=== PATIENT | male | born 1970 | race Caucasian/White ===

== ENCOUNTER → 2017-03-22 10:50 | Outpatient (CLI) | payer OTHER, SELFPAY ==
[2017-03-22 12:25] LABS: Thyroid Stim Hormone (TSH) 1.66 uIU/mL (0.358-3.74)
== END ==
PROVIDERS: Family Provider Family Medicine; PCP Family Medicine; Visit Provider Family Medicine
DX: N52.9 Male erectile dysfunction, unspecified (principal)
CPT/HCPCS: 36415; 84403; 84443

== ENCOUNTER → 2017-09-20 08:21 | Outpatient (CLI) | payer OTHER, SELFPAY ==
[2017-09-20 10:27] LABS: Anion Gap 9 (5-15); BUN 15 mg/dL (7-18); BUN/Creat Ratio 20.1 RATIO (10-20); Calcium,Total 8.5 mg/dL (8.5-10.1); Chloride 105 mmol/L (98-107); Creatinine, Serum 0.75 mg/dL (0.70-1.30); EST Glomerular Filtration Rate 119 mL/min (>60); Est Glom Filt Rate - Afr Amer 144 mL/min (>60); Glucose 130 mg/dL (74-106); Potassium 4.1 mmol/L (3.5-5.1); Sodium Level 143 mmol/L (136-145)
== END ==
PROVIDERS: Family Provider Family Medicine; PCP Family Medicine; Visit Provider Family Medicine
DX: E10.9 Type 1 diabetes mellitus without complications (principal)
CPT/HCPCS: 36415; 80048

== ENCOUNTER → 2017-11-12 11:58 | Outpatient (CLI) | payer OTHER, SELFPAY ==
--- NOTE | 2017-11-12 12:03 | RAD_ITS ---
STUDY: X-RAY - LUMBAR SPINE REASON FOR EXAM: Male, 47 years old. Low back pain for 10 years. TECHNIQUE: 5 view(s) of the lumbar spine were obtained. COMPARISON: None FINDINGS: Normal lumbar lordosis. There is no substantial scoliosis. There is a normal alignment of the vertebrae. There is very slight multilevel endplate spondylosis of the lumbar vertebrae. There is very slight multi-level degenerative disc disease with multi-level disc space narrowing. There is no demonstrated fracture. The soft tissue structures are unremarkable. RAD/L/S Spine Min 4 Views IMPRESSION: No acute abnormalities. Very mild multilevel degenerative changes. Electronically Signed: Rl Peter MD at 11:57 EDT , Service support ,
== END ==
PROVIDERS: Family Provider Family Medicine; PCP Family Medicine; Visit Provider Family Medicine
DX: M54.5 Low back pain (principal)
CPT/HCPCS: 72110

== ENCOUNTER → 2017-12-10 17:41 | Outpatient (CLI) | payer OTHER, SELFPAY ==
--- NOTE | 2017-12-10 17:48 | MRI_ITS ---
STUDY: MRI LUMBAR SPINE WITH AND WITHOUT CONTRAST REASON FOR EXAM: Male, 47 years old. Low back and left leg pain TECHNIQUE: Standardized fat and water weighted pulse sequences were obtained in the sagittal and axial planes. 10 ml of Gadavist contrast material was administered for the contrast portion of the examination. # of Images: 187 COMPARISON: None FINDINGS: T12-L1: Incompletely imaged bulging annulus with mild central canal stenosis. Normal lumbar lordosis. There is no substantial scoliosis. Normal conus medullaris that terminates at the L1-2 level. L1-2: Bulging annulus with mild central canal stenosis. L2-3: Bulging annulus and bilateral facet hypertrophy with moderate central canal stenosis, severe left lateral recess stenosis, and moderate to severe left and moderate right foraminal stenoses. L3-4: Bilateral laminectomies. Bulging annulus and bilateral facet hypertrophy with moderate central canal stenosis, severe left lateral recess stenosis, and severe bilateral foraminal stenoses. L4-5: Disc osteophyte complex with moderate to severe bilateral foraminal stenoses. L5-S1: Bulging annulus and broad central disc protrusion with moderate bilateral foraminal stenoses. Normal visualized sacral ala. Normal visualized paraspinous soft tissue structures. MRI/Spine Lumbar W/WO Contrast IMPRESSION: Multilevel degenerative disease as described. Severe left lateral recess stenoses at L2-3 and L3-4. Severe bilateral foraminal stenoses at L3-4 and L4-5. Electronically Signed: Tyrone Reina MD at 3:00 EDT Tel , Service support ,
== END ==
PROVIDERS: Family Provider Family Medicine; PCP Family Medicine
DX: M54.16 Radiculopathy, lumbar region (principal)
CPT/HCPCS: 72158; A9585

== ENCOUNTER → 2018-02-01 09:30 | Outpatient (CLI) | payer OTHER, SELFPAY ==
[2018-02-01 08:36] VITALS: BMI 29.7
[2018-02-01 11:27] LABS: Microalbumin,Random Urine 6.1 mg/L (NO RANGE EST.)
[2018-02-01 11:34] LABS: Hemoglobin A1c 7.9 % (4.2-6.3)
[2018-02-01 11:50] LABS: ALB/GLOB Ratio 1.2 RATIO (0.9-2.4); AST(SGOT) 21 U/L (15-37); Alanine Aminotransfer ALT/SGPT 36 U/L (16-61); Albumin, Serum 3.9 g/dL (3.2-5.0); Alkaline Phosphatase 78 U/L (45-117); Anion Gap 8 (5-15); BUN 17 mg/dL (7-18); BUN/Creat Ratio 27.1 RATIO (10-20); Calcium,Total 8.6 mg/dL (8.5-10.1); Chloride 103 mmol/L (98-107); Cholesterol 167 mg/dL (200); Creatinine, Serum 0.63 mg/dL (0.70-1.30); EST Glomerular Filtration Rate 146 mL/min (>60); Est Glom Filt Rate - Afr Amer 176 mL/min (>60); Globulin 3.2 g/dL (2.2-4.2); Glucose 250 mg/dL (74-106); High Density Lipoprotein 44 mg/dL; Potassium 4.3 mmol/L (3.5-5.1); Protein, Total 7.1 g/dL (6.4-8.2); Sodium Level 136 mmol/L (136-145); Thyroid Stim Hormone (TSH) 0.96 uIU/mL (0.358-3.74); Triglycerides 89 mg/dL; Very Low Density Lipoprotein 18 mg/dL (5-40)
== END ==
PROVIDERS: Family Provider Family Medicine; PCP Family Medicine; Referring Provider Nurse Practitioner; Visit Provider Nurse Practitioner
DX: E10.9 Type 1 diabetes mellitus without complications (principal)
CPT/HCPCS: 36415; 80053; 80061; 82043; 83036; 84443

== ENCOUNTER 2018-02-09 16:30 | Outpatient (RCR) | payer OTHER, SELFPAY ==
--- NOTE | 2017-11-24 09:42 | HP.PTEVAL_ITS ---
Patient's Visit Information CHEN JONES is a 47 year old M referred to Physical Therapy by Jim Torres with a diagnosis of LBP. Date of Evaluation: 11/24/17 Physical Therapist: Tone Guerrier, PT, - Visit Plan Frequency: 2-3x /Week Duration: 4-6 Weeks Plan: Seek second opinion from Anderson Lugo or Armida Eldridge, both MDT PT's, on next visit to establish appropriate POC. - Subjective Subjective: Pt reports he has had LBP for about 2 weeks. Pt reports he has a chronic Hx of LBP and complications. Pt notes he has had surgery twice in the past, being a laminectomy and discectomy at various levels of his LB. Pt reports he has no difficulty with sitting for a period of time, but notes prolonged standing or walking increases his LBP. Pt reports he has noticed weakness in his L LE over this 2 week time span as well. Pt reports his pain is worse in the morning, and notes it is very hard for him to urinate secondary to his radiating pain that covers his ant quadriceps and groin region. pt has had xrays, which revealed nothing abnormal. Pt reports no particular cause for this pain. Pt reports his radiating pain never extends below his knee on L LE. Pt reports sleep difficulty without taking his pain meds. 4/10 at rest, 9/10 at worst (walking) - Pain LBP Pain Intensity (Out of 10): 4 Pain Intensity Range: 9 - Objective Neuro: B LE sensation is WNL to light touch. B patellar reflex= 2/3. MMT: B LE's 5/5 throughout. ROM: Pt is severely limited with extension and L SB. Pt is WNL with forward flex and R SB. All movements produce L LE radiculopathy. Repeated movements: supine DKTC 10x3 alleviated pain mildly. Prone prop on elbows with one pillow radiated sx's into L medial knee. - Goals Goal 1:: Decrease LBP x 50% to aid with sleep Goal Time Frame: 4-6 Weeks Goal 2:: Increase L/S ROM extension and L SB x 1 grade to aid with IADL's Goal Time Frame: 4-6 Weeks Goal 3:: Decrease the frequency and intensity of L LE radiculopathy x 1 grade to aid with tolerance for ambulation Goal Time Frame: 4-6 Weeks Goal 4:: I with HEP Goal Time Frame: 4-6 Weeks - Rehabilitation Potential Physical Therapy Diagnosis: Pt has LBP, limited ROM, and L LE radiculopathy secondary to L/S disc derrangement Rehabilitation Potential: Good - Anticipated Interventions Patient/Client Instruction: Educate patient on: Condition, Plan of Care For the Purpose of:: To improve self management Therapeutic Exercise to Include: Strength training, Endurance training, Body mechanics, Postural training, Dynamic Lumbar Stabilization, Jaylon Exercises For the Purpose of:: To decrease pain, To increase ROM, To improve muscle performance and motor function IF ES: Yes For the Purpose of:: To decrease pain Thank you for the opportunity to evaluate your patient. For Medicare and Medicare HMO plans, please review the plan of care and approve it. It will need to be FAXED BACK to us at [phone] for Medicare purposes. Please let me know if there are questions or concerns regarding this plan of care. Physician Signature: Date:
--- NOTE | 2018-05-25 09:22 | HP.PTDCSUM ---
HP - PT D/C Summary It has been my pleasure to treat CHEN JONES under orders from Jim Torres MD, for the diagnosis of LBP for a total of 17 visit(s). Discharge Date: Please see the following information for a summary of their discharge status. - Subjective Subjective: Patient stated been ex's at home ,talked to MD changed MEDS. Patient using inversion table - Pain Left Lower Extremity Pain Intensity (Out of 10): 1 LBP Pain Intensity (Out of 10): 1 - Overall Improvement % Improvement: 90 - Objective Objective/Function: POSTURE : WFL. GAIT: normal ayesha. PALAPTION: unremrkable. LUMBAR ROM: flexion WFL,extension min loss,side glides min loss. -SLR - Goals Goal 1:: Decrease LBP x 50% to aid with sleep Goal 2:: Increase L/S ROM extension and L SB x 1 grade to aid with IADL's Goal 3:: Decrease the frequency and intensity of L LE radiculopathy x 1 grade to aid with tolerance for ambulation Goal 4:: I with HEP - Plan Plan: RTD TO DR. CARSON SHIN ,PATIENT WILL DO EX'S AT HOME. AND RETURN NEED BASED ON SYMPTOMS AND MD - D/C Information If there are questions or concerns regarding this patient's physical therapy, please feel free to call me at [phone]. Thank you for the referral of this patient. Sincerely, Toñito Lugo, PT, Cert MDT, OCS
== END 2018-02-09 19:00 | disposition home or self-care (01) ==
LOC: PT 16:30
PROVIDERS: Family Provider Family Medicine; PCP Family Medicine; Referring Provider Family Medicine; Visit Provider Family Medicine
DX: M54.5 Low back pain (principal)
CPT/HCPCS: 97012; 97014; 97035; 97110; 97162; 97530; G0283

== ENCOUNTER → 2018-09-20 09:26 | Outpatient (CLI) | payer OTHER, SELFPAY ==
[2018-05-03 08:26] VITALS: BMI 29.7
[2018-09-20 12:24] LABS: ALB/GLOB Ratio 1.4 RATIO (0.9-2.4); AST(SGOT) 15 U/L (15-37); Alanine Aminotransfer ALT/SGPT 26 U/L (16-61); Albumin, Serum 3.8 g/dL (3.2-5.0); Alkaline Phosphatase 77 U/L (45-117); Anion Gap 7 (5-15); BUN 18 mg/dL (7-18); BUN/Creat Ratio 22.1 RATIO (10-20); Calcium,Total 8.8 mg/dL (8.5-10.1); Chloride 103 mmol/L (98-107); Creatinine, Serum 0.81 mg/dL (0.70-1.30); EST Glomerular Filtration Rate 108 mL/min (>60); Est Glom Filt Rate - Afr Amer 130 mL/min (>60); Globulin 2.8 g/dL (2.2-4.2); Glucose 218 mg/dL (74-106); Potassium 4.3 mmol/L (3.5-5.1); Protein, Total 6.6 g/dL (6.4-8.2); Sodium Level 140 mmol/L (136-145)
== END ==
PROVIDERS: Family Provider Family Medicine; PCP Family Medicine; Referring Provider Family Medicine; Visit Provider Family Medicine
DX: E10.9 Type 1 diabetes mellitus without complications (principal)
CPT/HCPCS: 36415; 80053

== ENCOUNTER → 2019-03-27 13:16 | Outpatient (CLI) | payer OTHER, SELFPAY ==
[2018-05-03 08:26] VITALS: BMI 29.7
== END ==
PROVIDERS: PCP Family Medicine; Referring Provider Family Medicine; Visit Provider Family Medicine
DX: E10.9 Type 1 diabetes mellitus without complications (principal)
CPT/HCPCS: 87077; 87086; 87088; 87186

== ENCOUNTER → 2019-03-28 06:21 | Outpatient (CLI) | payer OTHER, SELFPAY ==
[2018-05-03 08:26] VITALS: BMI 29.7
[2019-03-28 08:02] LABS: Microalbumin,Random Urine 5.8 mg/L (NO RANGE EST.); Microalbumin:Creatinine Ratio 4.3 mg/g CRE (<30 mg/g CRE)
[2019-03-28 08:15] LABS: ALB/GLOB Ratio 1.1 RATIO (0.9-2.4); AST(SGOT) 19 U/L (15-37); Alanine Aminotransfer ALT/SGPT 33 U/L (16-61); Albumin, Serum 3.6 g/dL (3.2-5.0); Alkaline Phosphatase 78 U/L (45-117); Anion Gap 6 (5-15); BUN 17 mg/dL (7-18); BUN/Creat Ratio 19.9 RATIO (10-20); Calcium,Total 8.3 mg/dL (8.5-10.1); Chloride 105 mmol/L (98-107); Cholesterol 160 mg/dL (200); Creatinine, Serum 0.85 mg/dL (0.70-1.30); EST Glomerular Filtration Rate 102 mL/min (>60); Est Glom Filt Rate - Afr Amer 123 mL/min (>60); Globulin 3.2 g/dL (2.2-4.2); Glucose 248 mg/dL (74-106); High Density Lipoprotein 41 mg/dL; Potassium 4.3 mmol/L (3.5-5.1); Protein, Total 6.8 g/dL (6.4-8.2); Sodium Level 138 mmol/L (136-145); Thyroid Stim Hormone (TSH) 1.52 uIU/mL (0.358-3.74); Triglycerides 91 mg/dL; Very Low Density Lipoprotein 18 mg/dL (5-40)
== END ==
PROVIDERS: PCP Family Medicine; Referring Provider Family Medicine
DX: E10.65 Type 1 diabetes mellitus with hyperglycemia (principal)
CPT/HCPCS: 36415; 80053; 80061; 82043; 82570; 84403; 84443

== ENCOUNTER → 2020-02-21 07:38 | Outpatient (CLI) | payer OTHER, SELFPAY ==
[2020-02-21 10:49] LABS: Vitamin B12 932 pg/mL (211-911)
[2020-02-21 10:56] LABS: ALB/GLOB Ratio 1.2 RATIO (0.9-2.4); AST(SGOT) 9 U/L (15-37); Alanine Aminotransfer ALT/SGPT 26 U/L (16-61); Albumin, Serum 3.7 g/dL (3.2-5.0); Alkaline Phosphatase 78 U/L (45-117); Anion Gap 6 (5-15); BUN 16 mg/dL (7-18); BUN/Creat Ratio 19.8 RATIO (10-20); Calcium,Total 8.5 mg/dL (8.5-10.1); Chloride 105 mmol/L (98-107); Cholesterol 127 mg/dL (200); Creatinine, Serum 0.81 mg/dL (0.70-1.30); EST Glomerular Filtration Rate 108 mL/min (>60); Est Glom Filt Rate - Afr Amer 131 mL/min (>60); Globulin 3.1 g/dL (2.2-4.2); Glucose 249 mg/dL (74-106); High Density Lipoprotein 42 mg/dL; Potassium 4.6 mmol/L (3.5-5.1); Protein, Total 6.8 g/dL (6.4-8.2); Sodium Level 137 mmol/L (136-145); Triglycerides 51 mg/dL; Very Low Density Lipoprotein 10 mg/dL (5-40)
== END ==
PROVIDERS: PCP Family Medicine; Referring Provider Family Medicine; Visit Provider Family Medicine
DX: E10.9 Type 1 diabetes mellitus without complications (principal)
CPT/HCPCS: 36415; 80053; 80061; 82607; 84443

== ENCOUNTER → 2020-08-19 18:09 | Outpatient (CLI) | payer OTHER, SELFPAY | PROVIDERS: Visit Provider Family Medicine | DX: Z20.828 Contact with and (suspected) exposure to other viral communicable diseases (principal) | CPT/HCPCS: 87635; U0005; U0003 ==

== ENCOUNTER → 2020-09-23 12:26 | Outpatient (CLI) | payer OTHER, SELFPAY ==
--- NOTE | 2020-09-23 12:30 | RAD_ITS ---
STUDY: X-RAY - RIGHT FOOT CLINICAL: Male, 50 years old. Right foot pain. TECHNIQUE: 3 view(s) of the foot. COMPARISON: None. FINDINGS: Mild osteopenia. Superior and inferior calcaneal spurs. Normal visualized subtalar, talonavicular, calcaneocuboid, tarsal and tarsometatarsal articulations. Normal metatarsi. Mild arthrosis of the MTP and IP joints. Calcification within the Achilles tendon. RAD/Foot min 3 Views IMPRESSION: Mild osteopenia with calcaneal spurs, mild arthrosis of the MTP and IP joints and soft tissue ossification within the distal Achilles tendon. No acute finding, periostitis or erosive changes. Electronically Signed: Walter Low MD at 13:13 EDT , Service support ,
== END ==
PROVIDERS: PCP Family Medicine; Referring Provider Family Medicine; Visit Provider Family Medicine
DX: M79.671 Pain in right foot (principal)
CPT/HCPCS: 73630

== ENCOUNTER → 2021-08-20 | Outpatient (CLI) | payer OTHER, SELFPAY ==
[2021-08-20 09:53] LABS: Hematocrit 46.5 % (40-54); Hemoglobin 15.9 g/dL (13.0-16.5); Mean Corp Hgb Conc 34.2 g/dL (32-36); Mean Corpuscular Hgb 29.9 pg (27.0-32.0); Mean Corpuscular Volume 87.6 fL (80-94); Mean Platelet Vol. 9.4 fl (6.2-12.0); Platelet Count 263 K/mm3 (150-450); RBC Distribution Width CV 12.7 % (11.6-14.6); RBC Distribution Width SD 40.3 fl (35.1-43.9); Red Blood Count 5.31 M/mm3 (4.6-6.2); White Blood Count 5.2 K/mm3 (4.4-11.0)
[2021-08-20 10:10] LABS: Hemoglobin A1c 7.4 % (3.8-5.6); Vitamin D,25 Hydroxy 38.5 ng/mL
[2021-08-20 10:15] LABS: ALB/GLOB Ratio 1.2 RATIO (0.9-2.4); AST(SGOT) 17 U/L (15-37); Alanine Aminotransfer ALT/SGPT 31 U/L (16-61); Albumin, Serum 3.8 g/dL (3.2-5.0); Alkaline Phosphatase 74 U/L (45-117); Anion Gap 4 (5-15); BUN 19 mg/dL (7-18); BUN/Creat Ratio 26.5 RATIO (10-20); Calcium,Total 8.9 mg/dL (8.5-10.1); Chloride 107 mmol/L (98-107); Cholesterol 150 mg/dL (200); Creatinine, Serum 0.72 mg/dL (0.70-1.30); EST Glomerular Filtration Rate 123 mL/min (>60); Est Glom Filt Rate - Afr Amer 149 mL/min (>60); Globulin 3.3 g/dL (2.2-4.2); Glucose 214 mg/dL (74-106); High Density Lipoprotein 52 mg/dL; PSA,Total - Annual Screen 0.95 ng/mL (0.00-4.00); Potassium 4.3 mmol/L (3.5-5.1); Protein, Total 7.1 g/dL (6.4-8.2); Sodium Level 139 mmol/L (136-145); Thyroid Stim Hormone (TSH) 1.18 uIU/mL (0.358-3.74); Triglycerides 79 mg/dL; Very Low Density Lipoprotein 16 mg/dL (5-40)
== END | disposition home or self-care (01) ==
PROVIDERS: PCP Family Medicine; Referring Provider Family Medicine; Visit Provider Family Medicine
DX: M06.9 Rheumatoid arthritis, unspecified (principal); E10.9 Type 1 diabetes mellitus without complications; Z12.5 Encounter for screening for malignant neoplasm of prostate
CPT/HCPCS: 36415; 80053; 80061; 82306; 83036; 84153; 84443; 85027; G0103

== ENCOUNTER 2022-05-08 05:36 | Emergency (ER) | payer OTHER, SELFPAY ==
[2022-05-08] MEDS: 0.9% Normal Saline 1,000 ML 1000 ML IV (05:36)
[2022-05-08 05:38] VITALS: BP 115/61; PULSE 89; RESP 15; TEMP 36.2; O2SAT 97; BMI 31.3
--- NOTE | 2022-05-08 05:52 | EX.ED.DYSGE1 ---
HPI History of Present Illness Chief Complaint: Hyperglycemia Detail of Chief Complaint: Elevated blood sugar and vomiting Informant: patient Narrative Narrative: Patient presents to the emergency department via EMS from home with complaint of vomiting that started around 1 AM. Patient also states that his blood sugars have been running in the high 300s. Patient has an insulin pump. He is a type I diabetic. Patient has been compliant with his insulin. He denies sick contacts. He has also had some diarrhea. He describes some mild abdominal discomfort. Denies chest pain or shortness of breath. [facility] Medical History Arthritis Back problem Hearing problem Hypoglycemia Seasonal allergies Type 1 diabetes mellitus Home Medications hydroxychloroquine 200 mg tablet 200 mg PO DAILY 05/21/13 [History Last Taken Unknown] aspirin 81 mg tablet,delayed release 81 mg PO DAILY 01/31/18 [History Last Taken Unknown] ezetimibe 10 mg tablet tablet PO 05/12/21 [History Last Taken Unknown] folic acid 1 mg tablet tablet PO 05/12/21 [History Last Taken Unknown] losartan 25 mg tablet 25 mg PO 05/12/21 [History Last Taken Unknown] meloxicam 15 mg tablet 15 mg PO 05/12/21 [History Last Taken Unknown] methotrexate sodium 2.5 mg tablet 2.5 mg PO 05/12/21 [History Last Taken Unknown] etanercept 50 mg/mL (1 mL) subcutaneous cartridge (Enbrel Mini) 50 mg subcut 11/03/21 [History Last Taken Unknown] insulin aspart U-100 100 unit/mL subcutaneous solution (Novolog U-100 Insulin aspart) 120 unit (1.2 mL) continuous subcutaneous infusion .continuous #110 mL 05/07/22 [Rx Last Taken Unknown] Allergy/AdvReac Type Severity Reaction Status Date / Time [id number] Reductase AdvReac cramping Verified 05/08/22 05:49 Inhibitor severe. [Kdnhalf-Plu-Xou Reductase Inhibitor] Family History Other Arthritis Bowel disease Breast cancer Cancer Diabetes Surgical History Hx of lumbosacral spine surgery Social History Smoking Status: Never smoker second hand exposure: No alcohol intake: never substance use type: does not use frequency: 1-2 times per week ROS ROS ED Review of Systems ROS Unobtainable: other Constitutional Constitutional ED: Reports lethargy; Denies chills, fever(s), sweats or weight loss Eyes Eyes: Denies blurry vision, change in vision or diplopia ENT ENT ED: Denies rhinorrhea or sore throat Cardiovascular Cardiovascular: Denies chest pain, orthopnea or racing heartbeat Respiratory/Chest Respiratory/Chest: Denies cough, dyspnea, dyspnea on exertion, orthopnea or sputum Gastrointestinal Gastrointestinal: Reports abdominal pain, diarrhea, nausea and vomiting Genitourinary Genitourinary ED: Denies dysuria, hematuria or urinary frequency Musculoskeletal Musculoskeletal: Denies arthralgias, back pain, myalgias or neck pain Integumentary Denies abscess, Abrasions or rash Neurologic Neurologic: Denies headache(s) or weakness Psychiatric Psychiatric: Denies anxiety, depression or suicidal thoughts Endocrine Endocrinology: Denies polydipsia, polyphagia or polyuria Hematologic/Lymphatic Hematologic/Lymphatic: Denies easy bleeding, easy bruising or lymphadenopathy Allergic/Immunologic Allergic/Immunologic ED: Denies mouth swelling, tongue swelling or urticaria EXAM Physical Exam Const Vital Signs: 05/08/22 05:38 05/08/22 06:03 Temperature 97.1 F L Temperature Source Temporal Pulse Rate 89 84 Respiratory Rate 15 17 Blood Pressure 115/61 132/61 H Blood Pressure Mean 79 84 Pulse Ox 97 97 Oxygen Delivery Method Room Air Room Air Positive well nourished and well developed General Appearance ED: well developed and NAD HEENT Reports TM's clear and moist mucous membranes normocephalic and atraumatic; Negative for trauma or tenderness Tympanic Membrane ED: Yes TM's clear Eyes PERRL and EOMs intact bilaterally General Eye ED: Negative for pale conjunctiva or scleral icterus Neck no lymphadenopathy, supple and no JVD General: Negative for tenderness Chest Wall inspection of chest normal and palpation of chest normal Chest: Negative for tenderness Resp normal respiratory effort and clear to auscultation bilaterally Effort and Inspection: Negative for respiratory distress or pain with movement Auscultation: Negative for rhonchi, wheezes or diminished lung sounds Cardio regular rate, regular rhythm, S1 normal heart sound, S2 normal heart sound and no murmurs Peripheral Pulses: pulses 2+ throughout GI normal to inspection, nondistended, normoactive bowel sounds, soft to palpation, non-tender, non-distended and no masses Back/Spine no CVA tenderness and no thoracic nor lumbar tenderness Extremity normal to inspection General Extremety ED: Negative for edema General Extremity: Negative for edema Neuro oriented x3, CN's II-XII intact bilaterally, no sensory deficits noted and gait normal Sensorium / Orientation: awake, alert, oriented to person, oriented to place and oriented to time Motor Exam: strength 5/5 throughout and strength abnormal Psych mental status grossly normal Skin no rashes or lesions noted and no wounds MDM MDM MDM Narrative Medical decision making narrative: Patient presented with an IV in place. He had received Zofran 8 mg IV. CBC with differential obtained showed a white count 16.5 with a hemoglobin of 16 and a hematocrit of 46. Platelets were 254. Chemistries unremarkable. His blood glucose was 380 however he had a normal anion gap. He had small acetone in the serum. He did continue to complain of abdominal discomfort therefore CT scan of the abdomen pelvis was ordered and results of which are currently pending. Patient was able to bolus himself with 14 units at 630 of insulin through his insulin pump. He will require repeat fingerstick blood glucose in an hour. Patient saw Matthew Cumming endocrinology yesterday and had question about whether or not his pump was working properly and he can follow back up with her today. Lab Data Attestation: I reviewed the patient's lab results. Labs: Laboratory Results - last 24 hr 05/08/22 05/08/22 05/08/22 05:56 05:56 05:56 WBC 16.5 H RBC 5.15 Hgb 15.7 Hct 46.0 MCV 89.3 MCH 30.5 MCHC 34.1 RDW Std Deviation 41.6 RDW Coeff of Juliane 12.7 Plt Count 254 MPV 9.4 Immature Gran % (Auto) 0.500 Neut % (Auto) 83.7 H Lymph % (Auto) 8.9 L [place] % (Auto) 6.2 Eos % (Auto) 0.2 Baso % (Auto) 0.5 Absolute Neuts (auto) 13.8 H Absolute Lymphs (auto) 1.47 Nucleated RBC % 0 Sodium 137 Potassium 4.5 Chloride 103 Carbon Dioxide 22.0 Anion Gap 12 BUN 34 H Creatinine 1.03 Estim Creat Clear Calc 90.37 Est GFR (MDRD) Af Amer 98 Est GFR (MDRD) Non-Af 81 BUN/Creatinine Ratio 33.0 H Glucose 380 H Calcium 9.1 Total Bilirubin 3.10 H AST 18 ALT 31 Alkaline Phosphatase 74 Total Protein 7.1 Albumin 4.1 Globulin 3.0 Albumin/Globulin Ratio 1.4 Acetone Level SMALL H Discharge Plan Triage Chief Complaint: Hyperglycemia ED Provider: Tameka Escamilla Dx/Rx/DC Orders Clinical Impression: Acute hyperglycemia, Gastroenteritis Prescriptions: No Action aspirin 81 mg tablet,delayed release (DR/EC) 81 mg PO DAILY meloxicam 15 mg tablet 15 mg PO ezetimibe 10 mg tablet PO methotrexate sodium 2.5 mg tablet 2.5 mg PO Label Comments: TAKE 6 TABLETS BY MOUTH ONCE A WEEK folic acid 1 mg tablet PO losartan 25 mg tablet 25 mg PO Enbrel Mini 50 mg/mL (1 mL) cartridge 50 mg subcut insulin aspart U-100 [Novolog U-100 Insulin aspart] 100 unit/mL solution 120 unit continuous subcutaneous infusion .continuous Qty: 110 1RF hydroxychloroquine 200 MG tablet 200 mg PO DAILY Primary Care Provider: Amanuel Barahona Referrals: Amanuel Barahona MD [Primary Care Provider] -
[2022-05-08 06:03] VITALS: BP 132/61; PULSE 84; RESP 17; O2SAT 97
[2022-05-08 06:04] LABS: Absolute Lymphocyte Count 1.47 X10^3/uL (0.83-4.51); Absolute Neutrophil Count 13.8 X10^3/uL (2.0-7.7); Basophil# 0.08 X10^3/uL; Basophil% 0.5 % (0-1); Eosinophil# 0.04 X10^3/uL; Eosinophils% 0.2 % (0-5); Hemoglobin 15.7 g/dL (13.0-16.5); Lymphocyte # 1.47 X10^3/ul (0.83-4.51); Lymphocyte % 8.9 % (19-41); Mean Corp Hgb Conc 34.1 g/dL (32-36); Mean Corpuscular Hgb 30.5 pg (27.0-32.0); Mean Corpuscular Volume 89.3 fL (80-94); Mean Platelet Vol. 9.4 fl (6.2-12.0); Monocyte# 1.02 X10^3/uL; Monocyte% 6.2 % (0-10); NRBC Flagged by Analyzer 0 % (0-5); Neutrophil # 13.84 X10^3/uL (2.7-7.7); Neutrophil % 83.7 % (47-70); Platelet Count 254 K/mm3 (150-450); RBC Distribution Width CV 12.7 % (11.6-14.6); RBC Distribution Width SD 41.6 fl (35.1-43.9); Red Blood Count 5.15 M/mm3 (4.6-6.2); White Blood Count 16.5 K/mm3 (4.4-11.0)
[2022-05-08 06:21] LABS: ALB/GLOB Ratio 1.4 RATIO (0.9-2.4); AST(SGOT) 18 U/L (15-37); Alanine Aminotransfer ALT/SGPT 31 U/L (16-61); Albumin, Serum 4.1 g/dL (3.2-5.0); Alkaline Phosphatase 74 U/L (45-117); Anion Gap 12 (5-15); BUN 34 mg/dL (7-18); Calcium,Total 9.1 mg/dL (8.5-10.1); Chloride 103 mmol/L (98-107); Creatinine, Serum 1.03 mg/dL (0.70-1.30); EST Glomerular Filtration Rate 81 mL/min (>60); Est Glom Filt Rate - Afr Amer 98 mL/min (>60); Estimated Creatinine Clearance 90.37 ml/min; Glucose 380 mg/dL (74-106); Potassium 4.5 mmol/L (3.5-5.1); Protein, Total 7.1 g/dL (6.4-8.2); Sodium Level 137 mmol/L (136-145)
[2022-05-08] MEDS: 0.9% Normal Saline 1,000 ML 150 ML IV (06:25)
--- NOTE | 2022-05-08 07:00 | CT_ITS ---
INDICATION: abdominal pain EXAMINATION: CT ABDOMEN AND PELVIS WITHOUT CONTRAST - CT Abdomen And Pelvis W/O Contrast Injection TECHNIQUE: Helically acquired images were obtained of the abdomen and pelvis without oral or IV contrast. A radiation dose optimization technique was used for this scan. IV Contrast dosage and agent: None. Oral contrast: None. COMPARISON: None. FINDINGS: LOWER CHEST: Included lung bases are clear. LIVER: Grossly unremarkable. GALLBLADDER AND BILIARY TREE: Grossly unremarkable. PANCREAS: Grossly unremarkable. SPLEEN: Grossly unremarkable. ADRENAL GLANDS: Grossly unremarkable. KIDNEYS AND URETERS: No calculi demonstrated. No hydronephrosis. PERITONEUM: No free air. No free fluid. BOWEL: Suggestion of wall thickening from the mid ascending colon/hepatic flexure through transverse colon, possibly exaggerated by suboptimal distention. No bowel obstruction. APPENDIX: Not identified. VESSELS: Abdominal aorta is normal caliber. REPRODUCTIVE ORGANS: Grossly unremarkable URINARY BLADDER: Grossly unremarkable. ABDOMINAL WALL: Unremarkable. BONES: Degenerative changes in lumbar spine. CT/Abdomen/Pelvis without Cont IMPRESSION: Suggestion of colonic wall thickening ascending through transverse colon early acute colitis versus nondistention. No other acute findings. Electronically Signed: Corry Briseno MD at 7:39 EDT ,
[2022-05-08] MEDS: Metoclopramide 10 MG/2 ML Vial 5 MG IV (07:08)
[2022-05-08] MEDS: 0.9% Normal Saline 1,000 ML 999 ML IV (07:18)
--- NOTE | 2022-05-08 08:09 | EDS_ITS ---
HPI History of Present Illness Chief Complaint: Hyperglycemia [facility] Medical History Arthritis Back problem Hearing problem Hypoglycemia Seasonal allergies Type 1 diabetes mellitus Home Medications hydroxychloroquine 200 mg tablet 200 mg PO DAILY 05/21/13 [History Last Taken Unknown] aspirin 81 mg tablet,delayed release 81 mg PO DAILY 01/31/18 [History Last Taken Unknown] ezetimibe 10 mg tablet tablet PO 05/12/21 [History Last Taken Unknown] folic acid 1 mg tablet tablet PO 05/12/21 [History Last Taken Unknown] losartan 25 mg tablet 25 mg PO 05/12/21 [History Last Taken Unknown] meloxicam 15 mg tablet 15 mg PO 05/12/21 [History Last Taken Unknown] methotrexate sodium 2.5 mg tablet 2.5 mg PO 05/12/21 [History Last Taken Unknown] etanercept 50 mg/mL (1 mL) subcutaneous cartridge (Enbrel Mini) 50 mg subcut 11/03/21 [History Last Taken Unknown] insulin aspart U-100 100 unit/mL subcutaneous solution (Novolog U-100 Insulin aspart) 120 unit (1.2 mL) continuous subcutaneous infusion .continuous #110 mL 05/07/22 [Rx Last Taken Unknown] cephalexin 500 mg capsule 500 mg PO Q6 #40 CAPSULES 05/08/22 [Rx Last Taken Unknown] metronidazole 500 mg tablet 500 mg PO Q6H #40 tabs 05/08/22 [Rx Last Taken Unknown] Allergy/AdvReac Type Severity Reaction Status Date / Time [id number] Reductase AdvReac cramping Verified 05/08/22 05:49 Inhibitor severe. [Fnnshcq-Zxu-Bcs Reductase Inhibitor] Family History Other Arthritis Bowel disease Breast cancer Cancer Diabetes Surgical History Hx of lumbosacral spine surgery Social History Smoking Status: Never smoker second hand exposure: No alcohol intake: never substance use type: does not use frequency: 1-2 times per week EXAM Physical Exam Const Vital Signs: 05/08/22 05:38 05/08/22 06:03 Temperature 97.1 F L Temperature Source Temporal Pulse Rate 89 84 Respiratory Rate 15 17 Blood Pressure 115/61 132/61 H Blood Pressure Mean 79 84 Pulse Ox 97 97 Oxygen Delivery Method Room Air Room Air [facility] Lab Data Lab results narrative: CBC was reviewed and shows a leukocytosis of 16.5. The remainder was within normal limits. Comprehensive metabolic profile was reviewed. Glucose was 380. Anion gap was normal. Electrolytes were normal. Total bilirubin was mildly elevated at 3.1. AST, ALT, and alkaline phosphatase are normal. Serum acetone was reviewed and was small. Labs: Laboratory Results - last 24 hr 05/08/22 05/08/22 05/08/22 05:56 05:56 05:56 WBC 16.5 H RBC 5.15 Hgb 15.7 Hct 46.0 MCV 89.3 MCH 30.5 MCHC 34.1 RDW Std Deviation 41.6 RDW Coeff of Juliane 12.7 Plt Count 254 MPV 9.4 Immature Gran % (Auto) 0.500 Neut % (Auto) 83.7 H Lymph % (Auto) 8.9 L [place] % (Auto) 6.2 Eos % (Auto) 0.2 Baso % (Auto) 0.5 Absolute Neuts (auto) 13.8 H Absolute Lymphs (auto) 1.47 Nucleated RBC % 0 Sodium 137 Potassium 4.5 Chloride 103 Carbon Dioxide 22.0 Anion Gap 12 BUN 34 H Creatinine 1.03 Estim Creat Clear Calc 90.37 Est GFR (MDRD) Af Amer 98 Est GFR (MDRD) Non-Af 81 BUN/Creatinine Ratio 33.0 H Glucose 380 H Calcium 9.1 Total Bilirubin 3.10 H AST 18 ALT 31 Alkaline Phosphatase 74 Total Protein 7.1 Albumin 4.1 Globulin 3.0 Albumin/Globulin Ratio 1.4 Acetone Level SMALL H Radiography Diagnostic Testing: Clinical Impression(s) from Imaging Studies Abdomen/Pelvis CT 05/08/22 07:00 IMPRESSION: Suggestion of colonic wall thickening ascending through transverse colon early acute colitis versus nondistention. No other acute findings. Electronically Signed: Corry Briseno MD at 7:39 EDT , CT scan of the abdomen and pelvis was reviewed. There is colonic wall thickening of the ascending and transverse colon suspicious for acute colitis. This was interpreted by the radiologist and was also independently reviewed by myself. Treatment and Re-Evaluation :: Care of the patient was turned over to me pending CT scan results. CT scan of the abdomen pelvis showed thickening of the ascending and transverse colon consistent with colitis. There is no free air or free fluid. There is no other acute abnormality noted. Patient was advised of his findings. Patient was given a dose of Keflex and a dose of Flagyl here. Patient was given prescriptions for the same. Patient was instructed to start with a bland diet and advance his diet as tolerated. Patient was instructed to follow-up with his primary care physician in 3 to 5 days for reevaluation. Patient was also instructed to follow-up with his rn acls. Patient and spouse understood and were agreeable with the plan. All questions were answered. Discharge Plan Triage Chief Complaint: Hyperglycemia ED Provider: Tameka Escamilla Dx/Rx/DC Orders Clinical Impression: Acute hyperglycemia, Gastroenteritis, Colitis Instructions: ED Understanding Colitis, ED Diabetic Hyperglycemia Prescriptions: New metronidazole [metronidazole] 500 mg tablet 500 mg PO Q6H Qty: 40 0RF cephalexin [cephalexin] 500 mg capsule 500 mg PO Q6 Qty: 40 0RF No Action aspirin 81 mg tablet,delayed release (DR/EC) 81 mg PO DAILY meloxicam 15 mg tablet 15 mg PO ezetimibe 10 mg tablet PO methotrexate sodium 2.5 mg tablet 2.5 mg PO Label Comments: TAKE 6 TABLETS BY MOUTH ONCE A WEEK folic acid 1 mg tablet PO losartan 25 mg tablet 25 mg PO Enbrel Mini 50 mg/mL (1 mL) cartridge 50 mg subcut insulin aspart U-100 [Novolog U-100 Insulin aspart] 100 unit/mL solution 120 unit continuous subcutaneous infusion .continuous Qty: 110 1RF hydroxychloroquine 200 MG tablet 200 mg PO DAILY Primary Care Provider: Amanuel Barahona Referrals: Amanuel Barahona MD [Primary Care Provider] - 3-5 Days Aamir Bland MD [Med Staff - [facility] Staff] - 3-5 Days Disposition Disposition: Home, Self Care
[2022-05-08] MEDS: Cephalexin 500 MG Capsule PO (08:35)
[2022-05-08] MEDS: metroNIDAZOLE 500 MG Tablet PO (08:35)
[2022-05-08 08:38] VITALS: BP 138/72; PULSE 88; RESP 16; O2SAT 97
[2022-05-08] MEDS: Ondansetron ODT 4 MG Tablet PO (08:51)
== END 2022-05-08 08:40 | disposition home or self-care (01) ==
PROVIDERS: Emergency Provider Emergency Medicine; PCP Family Medicine; Visit Provider Emergency Medicine
DX: E10.65 Type 1 diabetes mellitus with hyperglycemia (principal); K52.9 Noninfective gastroenteritis and colitis, unspecified; Z96.41 Presence of insulin pump (external) (internal)
CPT/HCPCS: 74176; 80053; 82009; 85025; 96361; 96374; 99285

== ENCOUNTER → 2022-05-11 | Outpatient (CLI) | payer OTHER, SELFPAY ==
[2022-05-11 10:25] LABS: ALB/GLOB Ratio 1.2 RATIO (0.9-2.4); AST(SGOT) 28 U/L (15-37); Alanine Aminotransfer ALT/SGPT 35 U/L (16-61); Albumin, Serum 3.5 g/dL (3.2-5.0); Alkaline Phosphatase 65 U/L (45-117); Anion Gap 7 (5-15); BUN 11 mg/dL (7-18); BUN/Creat Ratio 14.9 RATIO (10-20); Calcium,Total 8.6 mg/dL (8.5-10.1); Chloride 107 mmol/L (98-107); Cholesterol 113 mg/dL (200); Creatinine, Serum 0.74 mg/dL (0.70-1.30); EST Glomerular Filtration Rate 119 mL/min (>60); Est Glom Filt Rate - Afr Amer 144 mL/min (>60); Glucose 123 mg/dL (74-106); High Density Lipoprotein 51 mg/dL; Potassium 3.8 mmol/L (3.5-5.1); Protein, Total 6.5 g/dL (6.4-8.2); Sodium Level 140 mmol/L (136-145); Thyroid Stim Hormone (TSH) 1.42 uIU/mL (0.358-3.74); Triglycerides 59 mg/dL; Very Low Density Lipoprotein 12 mg/dL (5-40)
[2022-05-11 10:44] LABS: Microalbumin,Random Urine 13.1 mg/L (NO RANGE EST.); Microalbumin:Creatinine Ratio 10.9 mg/g CRE (<30 mg/g CRE)
== END | disposition home or self-care (01) ==
PROVIDERS: PCP Family Medicine; Referring Provider Nurse Practitioner Family; Visit Provider Nurse Practitioner Family
DX: E10.9 Type 1 diabetes mellitus without complications (principal)
CPT/HCPCS: 36415; 80053; 80061; 82043; 82570; 84403; 84443

== ENCOUNTER 2022-06-16 06:46 | Day surgery (SDC) | payer OTHER, SELFPAY ==
[2022-06-16] VITALS (7 sets, daily range): BP systolic 97–116; BP diastolic 63–74; PULSE 63–75; RESP 16–17; TEMP 36.3–36.7; O2SAT 94–97; BMI 31.6
[2022-06-16] MEDS: Lactated Ringers 1,000 ML 15 ML IV (07:11)
--- NOTE | 2022-06-16 07:15 | HP.PCM_ITS ---
History and Physical Date of Admission: 06/16/22 Intake Vital Signs ? 05/08/2304:38 05/19/2307:19 Height 5 ft 11 in 5 ft 11 in Weight: 224 lb 6.889 oz 223 lb 4 oz BMI 31.3 31.1 BP 115/61 108/70 Blood Pressure Location ? Rt brachial Position ? Sitting Respiration 15 17 Pulse 89 75 Pulse Source ? Monitor Temp 97.1 F L 97.4 F L Temp Source Temporal ? Pulse Oximetry (%) 97 97 Oxygen Delivery Method ? room air Intake Visit Reasons:?ED FOR ACUTE COLITIS Chief Complaint: ED for acute colitis/colonoscopy Is patient in pain?: No Allergies Cfjinbc-VZE-XyO Reductase Inhibitor [Ypqldyl-Ifc-Fwc Reductase Inhibitor] Adverse Reaction (Verified 05/18/22 08:21) cramping severe. Medications hydroxychloroquine 200 mg tablet 200 mg PO DAILY 05/21/13 [History Confirmed 05/18/22] losartan 25 mg tablet 25 mg PO 05/12/21 [History Confirmed 05/18/22] meloxicam 15 mg tablet 15 mg PO 05/12/21 [History Confirmed 05/18/22] methotrexate sodium 2.5 mg tablet 2.5 mg PO 05/12/21 [History Confirmed 05/18/22] etanercept 50 mg/mL (1 mL) subcutaneous cartridge (Enbrel Mini) 50 mg subcut 11/03/21 [History] insulin aspart U-100 100 unit/mL subcutaneous solution (Novolog U-100 Insulin aspart) 120 unit (1.2 mL) continuous subcutaneous infusion .continuous #110 mL 05/07/22 [Rx Confirmed 05/18/22] metronidazole 500 mg tablet 500 mg PO Q6H #40 tabs 05/08/22 [Rx] PFSH Medical History? Arthritis Back problem Hearing problem Hypoglycemia Seasonal allergies Type 1 diabetes mellitus Surgical History? Hx of lumbosacral spine surgery Family History? Other Arthritis Bowel disease Breast cancer Cancer Diabetes Social History? Smoking Status:? Never smoker second hand exposure:? No alcohol intake:? never substance use type:? does not use frequency:? 1-2 times per week HPI HPI HPI: Patient is a 52-year-old male here with a history of colitis.? Patient was in the emergency room in the middle of April with abdominal pain.? CT scan revealed thickening of the transverse and ascending colon.? Patient was started on Flagyl and reports his pain has resolved.? He is not having any issues having bowel movements.? He denies any blood in his stool.? He has no family history of colon cancer.? His last colonoscopy was over 10 years ago. ROS General General: Yes weight change; No appetite, fatigue, colon cancer, breast cancer or weakness HEENT HEENT: No difficulty swallowing, eye injury, eye surgery, swollen glands or hoarseness Endo Endocrine: Yes diabetes mellitus; No thyroid disease, thyroid cancer, Hair loss, heat intolerance or cold intolerance Skin Skin: No rash or changing moles Musc Musculoskeletal: Yes back problems and arthritis; No rheumatoid arthritis, gout or joint pain Cardio Cardiovascular: No murmur, pacemaker, heart disease, atrial fibrillation, high blood pressure, heart attack, heart stent, palpitations, shortness of breat with exertion or chest pain Psych Psychiatric: No depression, anxiety or hearing voices Resp Respiratory: No shortness of breath, No sleep apnea, No cough, No COPD, No asthma, No emphysema and No wheezing Gastro Gastrointestinal: Yes abdominal pain, Yes nausea or vomiting, Yes diarrhea, No constipation, No blood in stool, No acid reflux, No hemorrhoids, No ulcers, No gallbladder problem and No black,tarry stools Mayank Hematologic: No blood thinners, No blood disorders, No bleeding, No anemia and No blood clots Neuro Neurologic: No system reviewed and no additional complaints, except as documented, No as per HPI, No abnormal gait, No abnormal hearing, No abnormal m ovements, No abnormal speech, No behavioral changes, No burning sensations, No confusion, No convulsions, No disequilibrium, No dizziness, No localized weakness, No frequent falls, No headache(s), No lack of coordination, No loss of vision, No memory loss, No numbness, No other visual disturbances, No radicular pain, No restless legs, No sensory deficit, No syncope, No tingling, No tremor(s), No weakness and No other Exam Const General: cooperative Orientation: alert and oriented x3 HENMT Head: normal to inspection Neck Neck: normal visual inspection and full ROM Chest Chest palpation & inspection: normal inspection of the chest Resp Effort & Inspection: normal respiratory effort Auscultation: clear to auscultation bilaterally Cardio Rate: regular rate Rhythm: regular rhythm GI Inspection: non-distended Palpation: soft and nontender Skin General: no rashes or lesions noted Neuro General: patient alert and patient oriented x3 Extrem General: full ROM Psych Appearance: grossly normal Mental Status: mental status grossly normal Assessment and Plan Assessment and Plan (1) Colitis: ?Status:?Inactive ?Plan: Patient was in the emergency room for colitis about 2 weeks ago.? He reports that his symptoms have resolved.? His PCP recommended colonoscopy as he has not had one in 10 years anyway.? I will plan on performing colonoscopy with the patient. I explained endoscopy in detail to the patient.? I explained the risks including but not limited to stroke or heart attack with anesthesia, perforation of the GI tract, bleeding, infection.? I explained that any of these could necessitate further emergency surgery.? The patient understands and all questions were answered sufficiently.? The patient wishes to proceed with procedure. Kishore Page MD Pager: [facility] [address] [place] [address], [address] [place] [address] Office: I have examined the patient and the H&P has been reviewed. There are no clinical changes since date of exam.
--- NOTE | 2022-06-16 08:14 | OP.COLON_ITS ---
Patient Name: Madi Israel Procedure Date: 06/16/2022 7:41 AM Date of : 1970 Age: 52 Procedure: Colonoscopy Indications: Follow-up of colitis Providers: Kishore Page MD Referring MD: Kishore Page MD Medicines: Monitored Anesthesia Care Patient Profile: This is a 52 year old male. Refer to note in patient chart for documentation of history and physical. Last Colonoscopy: none. The patient's first colonoscopy is today. Complications: No immediate complications. Procedure: Pre-Anesthesia Assessment: - Prior to the procedure, a History and Physical was performed, and patient medications and allergies were reviewed. The patient's tolerance of previous anesthesia was also reviewed. The risks and benefits of the procedure and the sedation options and risks were discussed with the patient. All questions were answered, and informed consent was obtained. Prior Anticoagulants: The patient has taken no previous anticoagulant or antiplatelet agents. After reviewing the risks and benefits, the patient was deemed in satisfactory condition to undergo the procedure. After I obtained informed consent, the scope was passed under direct vision. Throughout the procedure, the patient's blood pressure, pulse, and oxygen saturations were monitored continuously. The colonoscope was introduced through the anus and advanced to the cecum, identified by appendiceal orifice and ileocecal valve. The colonoscopy was performed without difficulty. The patient tolerated the procedure well. The quality of the bowel preparation was good. Scope In: 7:53:10 AM Scope Withdrawal Time 0 hours 5 minutes 50 seconds Scope Out: 8:05:17 AM Total Procedure Duration Time 0 hours 12 minutes 7 seconds Findings: The entire examined colon appeared normal. Impression: - The entire examined colon is normal. - No specimens collected. Recommendation: - Discharge patient to home. - Resume previous diet. - Continue present medications. - Repeat colonoscopy in 10 years for screening purposes. Procedure Code(s): --- Professional --- 80222, Colonoscopy, flexible; diagnostic, including collection of specimen(s) by brushing or washing, when performed (separate procedure) Diagnosis Code(s): --- Professional --- K52.9, Noninfective gastroenteritis and colitis, unspecified CPT copyright 2017 [employer] [place] [employer]. All rights reserved. The codes documented in this report are preliminary and upon natural gas field processing supervisor review may be revised to meet current compliance requirements. Kishore Page MD 06/16/2022 8:13:27 AM This report has been signed electronically. Number of Addenda: 0 Note Initiated On: 06/16/2022 7:41 AM
--- NOTE | 2022-06-16 08:15 | OP.CCLET_ITS ---
06/16/2022 Amanuel Barahona [address] [place] [address] Re : Colonoscopy procedure for [facility] Dear Dr. Barahona This procedure was performed on Thursday, June 16, 2022. My impressions and recommendations are as follows: Impressions : - The entire examined colon is normal. - No specimens collected. Recommendations : - Discharge patient to home. - Resume previous diet. - Continue present medications. - Repeat colonoscopy in 10 years for screening purposes. My findings are described in the full procedure note, which is enclosed. If I can be of further assistance, please feel free to contact me at Doctor phone number(s): , Work: . Sincerely, Kishore Page MD 06/16/2022 8:13:27 AM This report has been signed electronically.
== END 2022-06-16 08:49 | disposition home or self-care (01) ==
LOC: EN 06:48 → AC 06:48
PROVIDERS: PCP Family Medicine; Referring Provider Family Medicine; Visit Provider Surgery
PROC: 0DJD8ZZ Inspection of Lower Intestinal Tract, Via Natural or Artificial Opening Endoscopic (ICD-10-PCS; CPT 45378; principal; 2022-06-16 07:55)
DX: K52.9 Noninfective gastroenteritis and colitis, unspecified (principal); E10.9 Type 1 diabetes mellitus without complications
CPT/HCPCS: 45378; J7120; J2405

== ENCOUNTER → 2023-01-22 | Outpatient (CLI) | payer OTHER, SELFPAY ==
[2023-01-22 10:43] LABS: Vitamin D,25 Hydroxy 27.2 ng/mL
[2023-01-22 11:01] LABS: ALB/GLOB Ratio 1.1 RATIO (0.9-2.4); AST(SGOT) 23 U/L (15-37); Alanine Aminotransfer ALT/SGPT 42 U/L (16-61); Albumin, Serum 3.6 g/dL (3.2-5.0); Alkaline Phosphatase 69 U/L (45-117); Anion Gap 4 (5-15); BUN 23 mg/dL (7-18); BUN/Creat Ratio 31.3 RATIO (10-20); Calcium,Total 8.4 mg/dL (8.5-10.1); Chloride 106 mmol/L (98-107); Cholesterol 141 mg/dL (200); Creatinine, Serum 0.73 mg/dL (0.70-1.30); EST Glomerular Filtration Rate 119 mL/min (>60); Est Glom Filt Rate - Afr Amer 144 mL/min (>60); Globulin 3.4 g/dL (2.2-4.2); Glucose 149 mg/dL (74-106); High Density Lipoprotein 50 mg/dL; PSA,Total - Annual Screen 0.92 ng/mL (0.00-4.00); Potassium 4.5 mmol/L (3.5-5.1); Sodium Level 138 mmol/L (136-145); Thyroid Stim Hormone (TSH) 1.29 uIU/mL (0.358-3.74); Triglycerides 56 mg/dL; Very Low Density Lipoprotein 11 mg/dL (5-40)
== END | disposition home or self-care (01) ==
LOC: MTLAB 07:47
PROVIDERS: PCP Family Medicine; Referring Provider Family Medicine; Visit Provider Family Medicine
DX: E10.9 Type 1 diabetes mellitus without complications (principal); Z12.5 Encounter for screening for malignant neoplasm of prostate; L40.9 Psoriasis, unspecified
CPT/HCPCS: 36415; 80053; 80061; 82306; 84153; 84443; G0103

== ENCOUNTER → 2023-06-30 | Outpatient (CLI) | payer OTHER, SELFPAY ==
[2023-06-30 11:32] LABS: ALB/GLOB Ratio 1.1 RATIO (0.9-2.4); AST(SGOT) 17 U/L (15-37); Alanine Aminotransfer ALT/SGPT 25 U/L (16-61); Albumin, Serum 3.8 g/dL (3.2-5.0); Alkaline Phosphatase 68 U/L (45-117); Anion Gap 6 (5-15); BUN 21 mg/dL (7-18); BUN/Creat Ratio 26.5 RATIO (10-20); Calcium,Total 8.9 mg/dL (8.5-10.1); Chloride 106 mmol/L (98-107); Cholesterol 151 mg/dL (200); Creatinine, Serum 0.79 mg/dL (0.70-1.30); EST Glomerular Filtration Rate 109 mL/min (>60); Est Glom Filt Rate - Afr Amer 132 mL/min (>60); Globulin 3.4 g/dL (2.2-4.2); Glucose 166 mg/dL (74-106); High Density Lipoprotein 55 mg/dL; Potassium 4.2 mmol/L (3.5-5.1); Protein, Total 7.2 g/dL (6.4-8.2); Sodium Level 137 mmol/L (136-145); Triglycerides 53 mg/dL; Very Low Density Lipoprotein 11 mg/dL (5-40)
== END | disposition home or self-care (01) ==
PROVIDERS: PCP Family Medicine; Referring Provider Family Medicine; Visit Provider Family Medicine
DX: E10.9 Type 1 diabetes mellitus without complications (principal)
CPT/HCPCS: 36415; 80053; 80061; 84403

== ENCOUNTER 2024-01-06 20:47 | Emergency (ER) | payer OTHER, SELFPAY ==
[2024-01-06 20:52] VITALS: BP 125/78; PULSE 82; RESP 16; TEMP 36.7; O2SAT 95
[2024-01-06 21:11] VITALS: BMI 31.3
--- NOTE | 2024-01-06 21:34 | CT_ITS ---
INDICATION: dizziness EXAMINATION: CT BRAIN - CT Head or Brain W/O Contrast Injection TECHNIQUE: Multiple axial images were obtained of the head with sagittal and coronal reconstructed images. Individualized dose optimization techniques were used for this CT. IV contrast dosage and agent: None. COMPARISON: 06/10/2009 MRI. FINDINGS: BRAIN PARENCHYMA: No evidence of an acute infarct or intracranial hemorrhage. No evidence of a mass. CSF SPACES: The ventricles, sulci and subarachnoid cisterns are appropriate for age. CALVARIUM, SKULL BASE, PARANASAL SINUSES AND MASTOID AIR CELLS: No fracture. Mastoid air cells are clear. Visualized paranasal sinuses are unremarkable. ORBITS: The globes, extraocular muscles, optic nerves and retrobulbar fat are unremarkable. CT/Brain/Head without Contrast IMPRESSION: Normal noncontrast CT of the head. Electronically Signed: Zbigniew Morejon DO at 22:05 EST ,
--- NOTE | 2024-01-06 21:35 | EX.ED.DYSGE1 ---
HPI History of Present Illness Chief Complaint: Dizziness Informant: patient and spouse/S.O. 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 States for 3 weeks she has had some M?ni?re's symptoms with ringing in his ears. Sick at the point that he followed up with [place] [facility] [place] ear injection this past Wednesday. He said he felt well he actually drove home from their office. Denies any headaches. Last night he started vertiginous symptoms with room spinning dizziness. Denies any severe headache. No head trauma. He is on no blood thinners. Denies any trouble using his arms or legs. No visual change or change in his speech. Today the dizziness was worse. He had associated nausea and vomiting. No diarrhea. No fever. No chest or abdominal pain. Prior similar symptoms: Yes Recent Illness/Hospitalization: No PFSH [facility] Medical History Wears glasses History of steroid therapy Insulin dependent diabetes mellitus Psoriatic arthritis Back pain Dietary restriction Non-smoker Leg cramps Hypertension Seasonal allergies Hearing problem Type 1 diabetes mellitus Home Medications ?Medication ?Instructions ?Recorded ?Last Taken ?Type losartan 25 mg tablet 25 mg PO DAILY 05/12/21 06/16/22 History meloxicam 15 mg tablet 15 mg PO DAILY 05/12/21 Unknown History methotrexate sodium 2.5 mg tablet 15 mg PO MO 05/12/21 Unknown History etanercept 50 mg/mL (1 mL) 50 mg subcut JOHNSON 06/12/22 Unknown History subcutaneous syringe (Enbrel) ezetimibe 10 mg tablet (Zetia) 10 mg PO DAILY 06/12/22 Unknown History folic acid 1 mg tablet 1 mg PO SUTUWETHFRSA 06/12/22 Unknown History insulin aspart U-100 100 unit/mL 120 unit (1.2 mL) continuous 10/06/23 Unknown Rx subcutaneous solution (Novolog subcutaneous infusion .continuous U-100 Insulin aspart) #110 mL tirzepatide 5 mg/0.5 mL 5 mg (0.5 mL) subcut QWEEK #2 mL 12/08/23 Unknown Rx subcutaneous pen injector (Sanjana) hydrochlorothiazide 12.5 mg capsule 12.5 mg PO DAILY 01/06/24 Unknown History meclizine 25 mg tablet 25 mg PO TID PRN PRN dizziness 01/06/24 Unknown History ondansetron 4 mg disintegrating 4 mg PO Q6H PRN nausea and 01/06/24 Unknown Rx tablet vomiting #10 tabs Allergy/AdvReac Type Severity Reaction Status Date / Time Bvybped-PFY-QwG Reductase AdvReac cramping Verified 01/06/24 20:55 Inhibitor (Ppvazqd-Tom-Lxm severe. Reductase Inhibitor) Family History Other Arthritis Bowel disease Breast cancer Cancer Diabetes Surgical History Hx of colonoscopy History of tonsillectomy and adenoidectomy Hx of lumbosacral spine surgery Social History Smoking Status: Never smoker second hand exposure: No alcohol intake: never substance use type: does not use frequency: 1-2 times per week ROS ROS ED ROS Narrative Room spinning dizziness. Nausea vomiting. Constitutional Constitutional ED: Denies chills or fever(s) Eyes Eyes: Denies blurry vision ENT ENT ED: Denies ear pain Cardiovascular Cardiovascular: Denies chest pain Respiratory/Chest Respiratory/Chest: Denies cough or dyspnea Gastrointestinal Gastrointestinal: Reports nausea and vomiting; Denies abdominal pain or diarrhea Genitourinary Genitourinary ED: Denies dysuria or hematuria Musculoskeletal Musculoskeletal: Denies arthralgias Integumentary Denies abscess Neurologic Neurologic: Denies headache(s) Psychiatric Psychiatric: Denies anxiety Endocrine Endocrinology: Denies cold intolerance Hematologic/Lymphatic Hematologic/Lymphatic: Reports none Allergic/Immunologic Allergic/Immunologic ED: Denies mouth swelling, tongue swelling or urticaria EXAM Physical Exam Narrative Exam Narrative: 53-year-old male. Vital signs are stable afebrile. He does not look septic toxic or any distress. H EENT exam pupils round reactive light. Motions are intact. No facial droop. Tongue midline. Moist mucous membranes. TMs unremarkable bilaterally. Left TM has a small amount of scar tissue. Canals are unremarkable. Neck nontender no lymphadenopathy. Lungs clear to auscultation bilateral. Heart regular rhythm rate about 80 no murmur. Chest wall ribs nontender. Abdomen soft nontender. Moving all 4 extremities. 5 out of 5 machine plug shaper strength bilaterally. Dorsi plantarflexion intact. Fingertip to nose and [id number] within normal limits. Neurologic exam normal. NIH 0. Hallpike at this time is negative. Rotate his head from left to right and set him up no significant change in his symptoms. He did take a meclizine at home which she thinks helped his symptoms. Const Vital Signs: 01/06/24 20:52 Temperature 98.1 F Temperature Source Temporal Pulse Rate 82 Respiratory Rate 16 Blood Pressure 125/78 H Blood Pressure Mean 93 Pulse Ox 95 Oxygen Delivery Method Room Air Positive well nourished and well developed; Negative for obese, cachectic, contractures or unkempt General Appearance ED: well developed and NAD; Negative for unkempt, cachectic, contractures, cyanotic, diaphoretic or pallor Nutritional Appearance: Negative for cachectic or obese HEENT Reports TM's clear and moist mucous membranes Negative for trauma or tenderness Tympanic Membrane ED: Yes TM's clear Eyes PERRL and EOMs intact bilaterally General Eye ED: Negative for pale conjunctiva Neck no lymphadenopathy, supple and no JVD General: Negative for tenderness Lymph Lymphatic: Negative for other Chest Wall inspection of chest normal and palpation of chest normal Chest: Negative for other Resp normal respiratory effort and clear to auscultation bilaterally Effort and Inspection: Negative for retractions Auscultation: Negative for rales, rhonchi, wheezes or diminished lung sounds Cardio regular rate, regular rhythm, S1 normal heart sound, S2 normal heart sound and no murmurs Rate: Negative for bradycardia or tachycardic GI normal to inspection, nondistended, normoactive bowel sounds, non-tender, non-distended and no masses Palpation: soft; Negative for tender, guarding or rebound tenderness present Back/Spine no CVA tenderness General Back: Negative for CVA tenderness Cervical Spine: Negative for cervical spine tenderness Thoracic Spine / Upper Back: Negative for thoracic spinal tenderness or paraspinal muscle tenderness Lumbar Spine / Lower Back: Negative for lumbar spinal tenderness Extremity normal to inspection General Extremety ED: Negative for edema or tenderness General Extremity: Negative for edema Neuro oriented x3 and CN's II-XII intact bilaterally Sensorium / Orientation: alert; Negative for orientation impaired, lethargic or stuporous Motor Exam: strength 5/5 throughout Psych mental status grossly normal Appearance: Negative for unkempt Attitude: No agitated Mood & Affect: Negative for depressed, anxious or tearful Skin no rashes or lesions noted, no wounds and skin turgor normal General Skin Exam: elasticity normal; Negative for jaundice or pallor Lesions: No lesion noted Rashes: No rashes noted Trauma: Negative for abrasion Wounds: Negative for wounds noted MDM MDM MDM Narrative Medical decision making narrative: 53-year-old diabetic male with dizziness consistent with vertigo. Currently his exam is benign. His Hallpike is negative. I will get screening labs due to his diabetes. CT of his brain. But his neurologic exam currently is completely normal. He will be treated with IV Zofran. Repeat exam at 11:07 PM patient doing well. Symptom-free. Neurologic exam remains normal as does the rest of the exam. Bilateral 5-5 machine plug shaper strength. Bilateral dorsi and plantarflexion. We discussed possible diagnoses including vertigo. He has meclizine or Antivert at home. Will write for Zofran for nausea. And follow-up with his ENT or physical therapy if his symptoms persist to possibly have Tim maneuver done. History & Record Review Discussion w/independent historian: Patient Additional record(s) reviewed:: Prior inpatient record, Prior outpatient record, Prior ED visit and Prior labs Lab Data Attestation: I reviewed the patient's lab results. Lab results narrative: CBC normal. White count 8 H&H is 16 and 45. Platelets 258. Electrolytes normal gap 6. Normal BUN and creatinine of 18 [address] 0[address] Glucose 169. CT of the brain showed no acute abnormality as read by the radiologist and reviewed by me. Labs: Laboratory Results - last 24 hr 01/06/24 21:40 WBC 8.3 RBC 5.30 Hgb 16.3 Hct 45.8 MCV 86.4 MCH 30.8 MCHC 35.6 RDW Std Deviation 39.8 RDW Coeff of Juliane 12.8 Plt Count 258 MPV 9.8 Immature Gran % (Auto) 0.200 Neut % (Auto) 60.6 Lymph % (Auto) 28.2 [place] % (Auto) 8.6 Eos % (Auto) 1.4 Baso % (Auto) 1.0 Absolute Neuts (auto) 5.0 Absolute Lymphs (auto) 2.34 Nucleated RBC % 0 Sodium 138 Potassium 3.7 Chloride 100 Carbon Dioxide 32.0 Anion Gap 6 BUN 18 Creatinine 0.72 Estim Creat Clear Calc 141.57 Est GFR (MDRD) Af Amer 147 Est GFR (MDRD) Non-Af 122 BUN/Creatinine Ratio 25.0 H Glucose 169 H Calcium 9.3 Radiography Diagnostic Testing: Clinical Impression(s) from Imaging Studies Brain CT 01/06/24 21:34 IMPRESSION: Normal noncontrast CT of the head. Electronically Signed: Zbigniew Morejon DO at 22:05 EST , Discharge Plan Triage Chief Complaint: Dizziness ED Provider: David Swanson Dx/Rx/DC Orders Clinical Impression: Vertigo, Type 1 diabetes mellitus Instructions: ED Vertigo, Unspecified Prescriptions: New ondansetron 4 mg tablet,disintegrating 4 mg PO Q6H PRN (Reason: nausea and vomiting) Qty: 10 0RF No Action meloxicam 15 mg tablet 15 mg PO DAILY methotrexate sodium 2.5 mg tablet 15 mg PO MO Patient Comments: TAKE 6 TABLETS BY MOUTH ONCE A WEEK losartan 25 mg tablet 25 mg PO DAILY Mounjaro 5 mg/0.5 mL pen injector 5 mg subcut QWEEK Qty: 2 3RF folic acid 1 mg Tablet 1 mg PO SUTUWETHFRSA ezetimibe [Zetia] 10 mg Tablet 10 mg PO DAILY Enbrel 50 mg/mL (1 mL) Syringe 50 mg SUBCUT JOHNSON meclizine 25 mg tablet 25 mg PO TID PRN PRN (Reason: dizziness) hydrochlorothiazide 12.5 mg capsule 12.5 mg PO DAILY insulin aspart U-100 [Novolog U-100 Insulin aspart] 100 unit/mL solution 120 unit continuous subcutaneous infusion .continuous Qty: 110 1RF Primary Care Provider: Dwight Barahona Referrals: Dwight Barahona MD [Primary Care Provider] - As Needed Activity Restrictions/Additional Instructions: Your exam, CAT scan the labs were all normal. This may be secondary to vertigo but currently you are symptom-free. Use your meclizine at home. Use Zofran as needed for nausea and I sent a prescription to your pharmacy. Follow-up with your doctor if not improving or your ENT to do further evaluation. Sometimes ENT if the symptoms persist will do manipulation of your head and neck called Tim maneuver to resolve your symptoms. Physical therapy can do this also. Print Language: Bengali Disposition Disposition: Home, Self Care
[2024-01-06] MEDS: Ondansetron 4 MG/2 ML Vial IV (21:41)
[2024-01-06 21:52] LABS: Absolute Lymphocyte Count 2.34 X10^3/uL (0.83-4.51); Basophil# 0.08 X10^3/uL; Eosinophil# 0.12 X10^3/uL; Eosinophils% 1.4 % (0-5); Hematocrit 45.8 % (40-54); Hemoglobin 16.3 g/dL (13.0-16.5); Lymphocyte # 2.34 X10^3/ul (0.83-4.51); Lymphocyte % 28.2 % (19-41); Mean Corp Hgb Conc 35.6 g/dL (32-36); Mean Corpuscular Hgb 30.8 pg (27.0-32.0); Mean Corpuscular Volume 86.4 fL (80-94); Mean Platelet Vol. 9.8 fl (6.2-12.0); Monocyte# 0.71 X10^3/uL; Monocyte% 8.6 % (0-10); NRBC Flagged by Analyzer 0 % (0-5); Neutrophil # 5.03 X10^3/uL (2.7-7.7); Neutrophil % 60.6 % (47-70); Platelet Count 258 K/mm3 (150-450); RBC Distribution Width CV 12.8 % (11.6-14.6); RBC Distribution Width SD 39.8 fl (35.1-43.9); White Blood Count 8.3 K/mm3 (4.4-11.0)
[2024-01-06 22:09] LABS: Anion Gap 6 (5-15); BUN 18 mg/dL (7-18); Calcium,Total 9.3 mg/dL (8.5-10.1); Chloride 100 mmol/L (98-107); Creatinine, Serum 0.72 mg/dL (0.70-1.30); EST Glomerular Filtration Rate 122 mL/min (>60); Est Glom Filt Rate - Afr Amer 147 mL/min (>60); Estimated Creatinine Clearance 141.57 ml/min; Glucose 169 mg/dL (74-106); Potassium 3.7 mmol/L (3.5-5.1); Sodium Level 138 mmol/L (136-145)
[2024-01-06 22:51] VITALS: BP 114/70; PULSE 70; RESP 18; O2SAT 96
[2024-01-06 23:19] VITALS: BP 114/70; PULSE 70; RESP 16; TEMP 36.7; O2SAT 96
== END 2024-01-06 23:25 | disposition home or self-care (01) ==
PROVIDERS: Emergency Provider Emergency Medicine; PCP Family Medicine; Visit Provider Emergency Medicine
DX: H81.09 Meniere's disease, unspecified ear (principal); L40.50 Arthropathic psoriasis, unspecified; E10.9 Type 1 diabetes mellitus without complications; Z79.4 Long term (current) use of insulin; I10 Essential (primary) hypertension; Z79.899 Other long term (current) drug therapy
CPT/HCPCS: 70450; 80048; 85025; 96374; 99282; A4216; J2405

== ENCOUNTER → 2024-10-12 | Outpatient (CLI) | payer OTHER, SELFPAY ==
--- NOTE | 2024-10-12 16:22 | RAD_ITS ---
PROCEDURE: HIP, UNI W/ PELVIS 2-3 VIEWS 10/12/2024 REASON FOR EXAM: HIP PAIN TECHNIQUE: HIP, UNI W/ PELVIS 2-3 VIEWS Laterality: Right COMPARISON: None. FINDINGS: BONES: No acute fracture or focal osseous lesion. Degenerative changes of the imaged lumbar spine. JOINTS: No dislocation. The joint spaces are normal. Minimal spurring along the lateral right acetabular roof. SOFT TISSUES: The soft tissues are unremarkable. RAD/HIP, UNI W/ Pelvis 2-3 Views IMPRESSION: No acute osseous abnormality. Reading Location: [id number]
--- NOTE | 2024-10-12 16:22 | RAD_ITS ---
PROCEDURE: LUMBAR SPINE 2 OR 3 VIEWS 10/12/2024 REASON FOR EXAM: BACK PAIN TECHNIQUE: LUMBAR SPINE 2 OR 3 VIEWS FINDINGS: BONES: Five jac-msn-xfqpdil lumbar vertebral bodies. No fracture or focal osseous lesion. Alignment is anatomic in the sagittal projection. There is mild lateral subluxation of L2 on L3. Mild lumbar levoscoliosis. DISC/DEGENERATIVE CHANGES: Disc space narrowing throughout, greatest at L2-L3. SOFT TISSUES: No acute abnormality seen. RAD/Lumbar Spine 2 or 3 Views IMPRESSION: 1. No acute osseous abnormality. 2. Multilevel degenerative disc disease. Reading Location: [id number]
== END | disposition home or self-care (01) ==
LOC: MTRAD 16:20
PROVIDERS: PCP Family Medicine
DX: M54.9 Dorsalgia, unspecified (principal)
CPT/HCPCS: 72100; 73502

== ENCOUNTER → 2024-10-16 | Outpatient (CLI) | payer OTHER, SELFPAY | END | disposition home or self-care (01) | PROVIDERS: PCP Family Medicine; Referring Provider Family Medicine; Visit Provider Family Medicine | DX: Z00.00 Encounter for general adult medical examination without abnormal findings (principal) ==

== ENCOUNTER → 2024-10-16 | Outpatient (CLI) | payer OTHER, SELFPAY ==
[2024-10-16 18:32] LABS: Hematocrit 41.7 % (40-54); Hemoglobin 14.3 g/dL (13.0-16.5); Mean Corp Hgb Conc 34.3 g/dL (32-36); Mean Corpuscular Volume 87.1 fL (80-94); Mean Platelet Vol. 9.6 fl (6.2-12.0); Platelet Count 241 K/mm3 (150-450); RBC Distribution Width CV 12.9 % (11.6-14.6); RBC Distribution Width SD 40.8 fl (35.1-43.9); Red Blood Count 4.79 M/mm3 (4.6-6.2); White Blood Count 5.5 K/mm3 (4.4-11.0)
[2024-10-16 19:52] LABS: AST(SGOT) 28 U/L (<=37); Alanine Aminotransfer ALT/SGPT 47 U/L (<=46); Albumin, Serum 3.7 g/dL (3.5-5.0); Alkaline Phosphatase 73 U/L (40-129); Anion Gap 13 (5-15); BUN 25 mg/dL (4-19); BUN/Creat Ratio 34.8 RATIO (10-20); Calcium,Total 9.7 mg/dL (7.6-11.0); Carbon Dioxide 25.0 mmol/L (21.0-32.0); Chloride 101 mmol/L (98-108); Cholesterol 112 mg/dL (<=200); Globulin 2.6 g/dL (2.2-4.2); Glucose 96 mg/dL (70-99); Low Density Lipoprotein Calc. 59 mg/dL; Potassium 4.1 mmol/L (3.3-5.1); Triglycerides 80 mg/dL; Very Low Density Lipoprotein 16 mg/dL (5-40); cholesterol:hdl ratio screen 3.03
[2024-10-17 13:15] LABS: Free T3 18.3 pg/mL (2.18-3.98); Pro- Brain NATRIURETIC PEPTIDE 67 pg/mL (<=900)
== END | disposition home or self-care (01) ==
LOC: LABSPEC 17:53
PROVIDERS: PCP Family Medicine; Visit Provider Family Medicine
DX: E05.90 Thyrotoxicosis, unspecified without thyrotoxic crisis or storm (principal); E10.9 Type 1 diabetes mellitus without complications; M79.89 Other specified soft tissue disorders; E78.5 Hyperlipidemia, unspecified
CPT/HCPCS: 80053; 80061; 83880; 84439; 84443; 84481; 85027

== ENCOUNTER → 2024-10-27 | Outpatient (CLI) | payer OTHER, SELFPAY ==
--- NOTE | 2024-10-27 13:51 | VDLE_ITS ---
Reason For Study Reason For Study: RLE Swelling RIGHT LEFT GSV is normal. FV is compressible, spontaneous, phasic, competent CFV is compressible, spontaneous, phasic, competent and demonstrates normal augmentation. and demonstrates normal augmentation. FV is compressible, spontaneous, phasic, competent and demonstrates normal augmentation. Acute deep vein thrombosis is noted in the POP V. It is dilated and NONCOMPRESSIBLE. T/P Trunk is compressible. Acute deep vein thrombosis is noted in the PTV. It is dilated and NONCOMPRESSIBLE. RT PerV is compressible. Procedure This is a venous duplex using B-mode, color flow and spectral Doppler. Exam performed in department. The exam was diagnostic. A preliminary report was called and/or faxed to Susanne @ [facility] / Dr. Bronson. VL/Venous Duplex US, Unilateral Interpretation Summary Acute deep vein thrombosis is noted in the right popliteal vein. Acute deep vei n thrombosis is noted in the right posterior tibial vein. The remainder of the right lower extremity deep venous s ystem is patent and compressible. The right common femoral vein and femoral vein are competent. The right great saphe nous vein appears patent and compressible segmentally. The left femoral vein is patent and compressible. Ordering Physician: Dwight Barahona Referring Physician: Dwight Barahona Performed By: Hany Dowling RVT
== END | disposition home or self-care (01) ==
LOC: CVS 13:47
PROVIDERS: PCP Family Medicine; Referring Provider Family Medicine; Visit Provider Family Medicine
DX: M25.471 Effusion, right ankle (principal)
CPT/HCPCS: 93971

== ENCOUNTER → 2024-12-07 | Outpatient (CLI) | payer OTHER, SELFPAY ==
[2024-12-07 16:36] LABS: Creatinine, Urine (random) 80.70 mg/dL (39.00-259.00); Microalbumin,Random Urine < 12.0 mg/L (<20 mg/L)
[2024-12-07 17:22] LABS: Anion Gap 9 (5-15); BUN 13 mg/dL (4-19); BUN/Creat Ratio 16.8 RATIO (10-20); Calcium,Total 9.6 mg/dL (7.6-11.0); Carbon Dioxide 29.7 mmol/L (21.0-32.0); Chloride 103 mmol/L (98-108); Free T3 4.5 pg/mL (2.18-3.98); Glucose 78 mg/dL (70-99); Potassium 4.6 mmol/L (3.3-5.1)
== END | disposition home or self-care (01) ==
LOC: LAB 15:15
PROVIDERS: PCP Family Medicine; Visit Provider Nurse Practitioner Family
DX: E05.90 Thyrotoxicosis, unspecified without thyrotoxic crisis or storm (principal); E66.811 Obesity, class 1
CPT/HCPCS: 36415; 80048; 82043; 82570; 84439; 84443; 84481

== ENCOUNTER → 2025-01-11 | Outpatient (CLI) | payer OTHER, SELFPAY ==
[2025-01-11 12:48] LABS: Free T3 2.8 pg/mL (2.18-3.98)
== END | disposition home or self-care (01) ==
LOC: MTLAB 09:35
PROVIDERS: PCP Family Medicine; Referring Provider Nurse Practitioner Family; Visit Provider Nurse Practitioner Family
DX: E05.90 Thyrotoxicosis, unspecified without thyrotoxic crisis or storm (principal)
CPT/HCPCS: 36415; 84439; 84443; 84481; 86376